=== PATIENT | male | born 1990 | race Caucasian/White ===

== ENCOUNTER 2018-12-08 22:38 | Emergency (ER) | payer BC ==
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
[2018-12-09 01:56] VITALS: BP 128/70
== END 2018-12-09 01:45 | disposition home or self-care (01) ==
LOC: FB.ED 22:38
DX: T14.8XXA Other injury of unspecified body region, initial encounter (principal); S00.212A Abrasion of left eyelid and periocular area, initial encounter; S00.31XA Abrasion of nose, initial encounter; S00.81XA Abrasion of other part of head, initial encounter; V19.9XXA Pedal cyclist (driver) (passenger) injured in unspecified traffic accident, initial encounter; Z79.899 Other long term (current) drug therapy
CPT/HCPCS: 36415; 70450; 72125; 80053; 85027; 85610; 99283-25

== ENCOUNTER 2019-07-12 19:45 | Emergency (ER) | payer BC ==
[2019-07-12] MEDS ORDERED: predniSONE 20 MG Tab PO ONE (19:54)
[2019-07-12] MEDS ORDERED: diphenhydrAMINE 50 MG/ML SDV IM ONE (19:54)
--- NOTE | 2019-07-12 20:01 | EDM.PDOC ---
ED HPI GENERAL MEDICAL PROBLEM - General Stated Complaint: RASH Time Seen by Provider: 07/12/19 19:50 Source of Information: Reports: Patient History Limitations: Reports: No Limitations - History of Present Illness INITIAL COMMENTS - FREE TEXT/NARRATIVE: Patient presented to the ED because of urticarial rash all over his abdomen and torso. It's pruritic and burning. Denies any known allergy,no dyspnea,fever or chills. - Related Data Allergies Allergy/AdvReac Type Severity Reaction Status Date / Time No Known Allergies Allergy Verified 09/28/15 08:01 Home Meds: Home Meds Bismuth Subsalicylate [Pepto Bismol] 30 ml PO ASDIRECTED PRN 09/27/15 [History] Calcium Carbonate/Vitamin D3 [Calcium Carb 500 MG] 2 each PO Q4HR PRN 09/27/15 [ History] Psyllium [Metamucil SF] 1 tab PO BID 09/27/15 [History] Ferrous Sulfate [Iron Supplement] 325 mg PO TID 09/28/15 [History] Multivitamin [Multivitamins] 1 tab PO DAILY 09/28/15 [History] Omeprazole [Prilosec] 20 mg PO DAILY #30 capsule. 09/28/15 [Rx] Past Medical History Other HEENT History: t/a,wisdom tooth removal Other Gastrointestinal History: IRON DEFICIENCY ET LOW RBC'S RECENTLY Psychiatric History: Reports: Anxiety - Infectious Disease History Infectious Disease History: Reports: Chicken Pox - Past Surgical History HEENT Surgical History: Reports: Adenoidectomy, Tonsillectomy, Other (See Below) Social & Family History - Family History Family Medical History: Noncontributory - Caffeine Use Caffeine Use: Reports: None ED ROS GENERAL - Review of Systems Review Of Systems: See Below Constitutional: Reports: No Symptoms HEENT: Reports: No Symptoms Respiratory: Reports: No Symptoms Cardiovascular: Reports: No Symptoms Endocrine: Reports: No Symptoms GI/Abdominal: Reports: No Symptoms : Reports: No Symptoms Musculoskeletal: Reports: No Symptoms Skin: Reports: Pruritis, Urticaria Neurological: Reports: No Symptoms Psychiatric: Reports: No Symptoms ED EXAM, SKIN/RASH Exam: See Below Exam Limited By: No Limitations General Appearance: Alert, No Apparent Distress Eye Exam: Bilateral Eye: PERRL Ears: Normal External Exam, Normal Canal, Hearing Grossly Normal, Normal TMs Nose: Normal Inspection, Normal Mucosa, No Blood Throat/Mouth: Normal Inspection, Normal Lips, Normal Teeth Head: Atraumatic, Normocephalic Neck: Normal Inspection, Supple, Non-Tender Respiratory/Chest: No Respiratory Distress, Lungs Clear, Normal Breath Sounds GI/Abdominal: Normal Bowel Sounds, Soft, Non-Tender, No Organomegaly Back Exam: Normal Inspection, Full Range of Motion Extremities: Normal Inspection, Normal Range of Motion Skin: Warm, Dry, Rash Course - Vital Signs Text/Narrative:: benadryl 50 mg IM x1 prednisone 40 mg po x1 - Orders/Labs/Meds Meds: Medications Discontinued Medications Generic Name Dose Route Start Last Admin Trade Name Marcelloq PRN Reason Stop Dose Admin Diphenhydramine HCl 50 mg 07/12/19 19:54 07/12/19 20:11 Benadryl IM 07/12/19 19:55 50 mg ONETIME ONE Administration Prednisone 40 mg 07/12/19 19:54 07/12/19 20:12 Prednisone PO 07/12/19 19:55 40 mg ONETIME ONE Administration Departure - Departure Time of Disposition: 20:35 Disposition: Home, Self-Care 01 Condition: Good Clinical Impression: Urticaria - Discharge Information Instructions: Hives, [id number] Referrals: PCP,None [Primary Care Provider] - Additional Instructions: please read discharge instructions on hives take benadryl 25-50 mg every 6 hours as needed for itching follow up as needed Sepsis Event Note - Focused Exam Date Exam was Performed: 07/12/19 Time Exam was Performed: 21:30
[2019-07-13 01:34] VITALS: BP 133/75; PULSE 64
== END 2019-07-12 20:50 | disposition home or self-care (01) ==
LOC: FB.ED 19:45
DX: L50.9 Urticaria, unspecified (principal)
CPT/HCPCS: 96372; 99283; A9270; J1200